=== PATIENT | female | born 1950 | race Caucasian/White ===

== ENCOUNTER 2021-03-31 06:48 | Outpatient (CLI) | payer OTHER | END 2021-03-31 06:58 | disposition home or self-care (01) | LOC: LAB 06:48 | DX: E03.8 Other specified hypothyroidism (principal); E55.9 Vitamin D deficiency, unspecified; E78.89 Other lipoprotein metabolism disorders; E11.9 Type 2 diabetes mellitus without complications; N39.0 Urinary tract infection, site not specified; I10 Essential (primary) hypertension; Z11.4 Encounter for screening for human immunodeficiency virus [HIV]; Z12.11 Encounter for screening for malignant neoplasm of colon ==

== ENCOUNTER 2021-04-01 12:21 | Outpatient (CLI) | payer OTHER | END 2021-04-01 12:28 | disposition home or self-care (01) | LOC: LAB 12:21 | DX: E03.8 Other specified hypothyroidism (principal); E55.9 Vitamin D deficiency, unspecified; E78.49 Other hyperlipidemia; E11.9 Type 2 diabetes mellitus without complications; N39.0 Urinary tract infection, site not specified; I10 Essential (primary) hypertension; Z11.4 Encounter for screening for human immunodeficiency virus [HIV]; Z12.11 Encounter for screening for malignant neoplasm of colon ==